=== PATIENT | male | born 1980 | race Caucasian/White ===

== ENCOUNTER → 2021-10-12 11:33 | Outpatient (BNVA) | payer MEDICARE, MEDICAID, SELFPAY | PROVIDERS: PCP Nurse Practitioner; Visit Provider Internal Medicine Gastroenterology | DX: K50.10 Crohn's disease of large intestine without complications (principal) | CPT/HCPCS: 99202 ==

== ENCOUNTER 2022-11-21 10:57 | Inpatient (IN) | payer MEDICARE, MEDICAID, SELFPAY ==
--- NOTE | 2022-11-21 | ECG_ITS ---
Test Reason : MED CLEAR Blood Pressure : / mmHG Vent. Rate : 080 BPM Atrial Rate : 080 BPM P-R Int : 154 ms QRS Dur : 084 ms QT Int : 370 ms P-R-T Axes : 078 027 054 degrees QTc Int : 426 ms Normal sinus rhythm Possible Left atrial enlargement Left ventricular hypertrophy ( Sokolow-Sauceda , Romhilt-Berg ) Abnormal ECG No previous ECGs available Referred By: Melissa Richard Electronically Signed By:PIEDAD CHUNG MD
[2022-11-21 11:03] VITALS: BP 130/88; BP 179/100; PULSE 78; PULSE 89; RESP 16; O2SAT 100; O2SAT 99; BMI 20.3
[2022-11-21 11:45] LABS: COVID-19 Test Negative (Negative); IDNOW Serial# 9DB6401D
--- NOTE | 2022-11-21 12:18 | PC.NURSE ---
Evelyn HYLTON notified regarding pt's elevated b/p. Pt denies headache, vision changes, or dizziness at this time, reports he has been out of [place] for a few weeks .
--- NOTE | 2022-11-21 12:38 | MHC.CARE ---
Pt's father (Tee ruvalcaba: [phone]) called to obtain information on pt's status. CARE Team [employer] was unable to give him any information at that time. He is requesting someone call him when pt's disposition is determined as he expressed concern over comments he made that led to his current presentation. No additional information/ details were given.
--- NOTE | 2022-11-21 12:51 | MHC.CARE ---
Pt M[place] from [place] [address] on section 12. Per EMS pt was making delusional statements at court, and telling his parents he has access to guns. Pt denying SI and HI at triage. Parents were attempting to obtain a section 35.
[2022-11-21 14:16] LABS: MANUAL DIFF FLAG NO
[2022-11-21 14:25] LABS: Basophils Percent Auto 0.4 % (0-2); Eosinophils Percent Auto 0.4 % (0-4); Hematocrit 41.5 % (42.0-52.0); Hemoglobin 13.7 g/dl (14.0-18.0); Imm Gran Abs Auto 0.01 X10*3/uL (0.00-0.03); Imm Gran Pct Auto 0.1 % (0.0-0.4); Lymphocytes Absolute Auto 1.7 X10*3/uL (1.2-4.9); Mean Corpuscular Hemoglobin 27.8 pg (27.0-33.0); Mean Corpuscular Volume 84.2 fL (80.0-98.0); Mean Platelet Volume 9.3 fL (9.4-12.4); Monocytes Absolute Auto 0.4 X10*3/uL (0.1-1.2); Monocytes Percent Auto 5.3 % (2-11); Neutrophils Absolute Auto 5.1 x10*3/uL (2.0-8.3); Neutrophils Percent Auto 70.8 % (45-73); Platelet Count 230 X10*3/uL (160-400); Red Blood Count 4.93 X10*6/uL (4.60-5.80); Red Cell Distribution Width 13.9 % (11.0-16.0); White Blood Count 7.2 X10*3/uL (4.8-10.8)
[2022-11-21 14:34] LABS: Acetaminophen LAB < 17 mcg/mL (<30); Alanine Aminotransferase 23 U/L (0-40); Albumin Level 4.4 g/dL (3.5-5.0); Alkaline Phosphatase 95 U/L (39-117); Anion Gap 12 (12-20); Aspartate Amino Transferase 19 U/L (5-37); Bilirubin Direct < 0.2 mg/dL (0.0-0.5); Bilirubin Total 0.3 mg/dL (0.0-1.0); Blood Urea Nitrogen 17 mg/dL (9-16); Calcium 9.3 mg/dL (8.4-10.2); Carbon Dioxide 32 mmol/L (22-29); Chloride 101 mmol/L (96-108); Creatinine Clr Calc Pharmacy 127.3; Estimated Glomerular Filt Rate > 60; Ethanol < 10 mg/dL; Glucose Random 103 mg/dL (60-115); Potassium 4.9 mmol/L (3.3-5.1); Salicylate < 5.0 mg/dL (15-30); Sodium 140 mmol/L (135-145); Total Protein 7.6 g/dL (6.5-8.0)
--- NOTE | 2022-11-21 15:36 | ED.PSYCH ---
HPI - Psych General Chief Complaint: Psychiatric Symptoms <WARNER Wang - Last Filed: 11/21/22 17:55> Stated Complaint: CRISIS,SEC [address] <WARNER Wang Last Filed: 11/21/22 17:55> Time Seen by Provider: 11/21/22 12:37 <WARNER Wang - Last Filed: 11/21/22 17:55> Source: patient and EMS <WARNER Wang Last Filed: 11/21/22 17:55> Mode of arrival: EMS <WARNER Wang - Last Filed: 11/21/22 17:55> History of Present Illness HPI Narrative: 41-year-old male with past medical history of substance abuse on Suboxone presenting to the ED via EMS from [facility] on a Section 12 for delusional statements, and reporting he has access to guns. Per Section 12 patient making strange statements, parents were concerned. At present patient offers no complaints, unclear why he is in the emergency department. Reports occasional cocaine, EtOH, THC use. Denies SI/HI or AH/VH at this time. Reports medication compliance <WARNER Wang - Last Filed: 11/21/22 17:55> Onset (ago): unknown <WARNER Wang Last Filed: 11/21/22 17:55> Related Data Home Medications: Home Medications Medication Instructions Recorded Confirmed atenolol 25 mg tablet 25 mg PO DAILY 10/12/21 11/21/22 omeprazole 20 mg capsule,delayed 20 mg PO DAILY 10/12/21 11/21/22 release buprenorphine 8 mg-naloxone 2 mg 2 film buccal DAILY 11/21/22 11/21/22 sublingual film (Suboxone) <WARNER Wang Last Filed: 11/21/22 17:55> Allergies/Adverse Reactions: Allergies Allergy/AdvReac Type Severity Reaction Status Date / Time No Known Allergies Allergy Verified 11/21/22 15:09 [No Known Allergies*] <WARNER Wang Last Filed: 11/21/22 17:55> Review of Systems Review of Systems: Constitutional: No Fever, No Chills, No Malaise ENT/Mouth: No Ear Pain, No Nasal Congestion, No sore throat, No Rhinorrhea, No Swallowing Difficulty Eyes: No Eye Pain, No Swelling, No Vision Changes Cardiovascular: No Chest Pain, No SOB Respiratory: No Cough, No Sputum, No Dyspnea Gastrointestinal: No Nausea, No Vomiting, No Diarrhea, No Constipation, No Abdominal pain Genitourinary: No Dysuria, No Flank Pain Musculoskeletal: No joint pain, No Myalgias, No Joint Swelling Skin: No Skin Lesions, No rash Neuro: No Weakness, No Dizziness, No Headache Psych: No Anxiety/Panic, No Depression, No SI/HI/AH/VH, No Social Issues <WARNER Wang - Last Filed: 11/21/22 17:55> Yes all other systems are reviewed and are negative <WARNER Wang - Last Filed: 11/21/22 17:55> Constitutional: Constitutional: Reports as per HPI <WARNER Wang - Last Filed: 11/21/22 17:55> PMFSH Past Medical History Attestation statement: The following information was validated with the patient. <WARNER Wang - Last Filed: 11/21/22 17:55> Surgical History: Surgical History History of esophagogastroduodenoscopy (EGD) Hx of cholecystectomy Hx of colonoscopy <WARNER Wang - Last Filed: 11/21/22 17:55> Family History Family History: Family History Father Enlarged prostate HTN (hypertension) Maternal Grandfather Diabetes Mother HTN (hypertension) <WARNER Wang - Last Filed: 11/21/22 17:55> Social History Social History: Social History Alcohol intake: unknown Use of substances other than those prescribed or required for medical reasons: Refusing to respond Advance Directives: No Advance Directives Information Provided: No <WARNER Wang Last Filed: 11/21/22 17:55> Physical Exam Vital Signs: Vital Signs: Last Vital Signs Temp 99.1 F 11/21/22 15:56 Pulse 89 11/21/22 15:56 Resp 20 11/21/22 15:56 BP 155/90 H 11/21/22 15:56 Pulse Ox 99 11/21/22 15:56 O2 Del Method 11/21/22 15:56 BMI result Body Mass Index 20.3 <WARNER Wang - Last Filed: 11/21/22 17:55> Vital Signs: Last Vital Signs Temp 99.1 F 11/21/22 15:56 Pulse 89 11/21/22 15:56 Resp 20 11/21/22 15:56 BP 155/90 H 11/21/22 15:56 Pulse Ox 99 11/21/22 15:56 O2 Del Method 11/21/22 15:56 BMI result Body Mass Index 20.3 <Perlita Roe MD - Last Filed: 11/21/22 19:48> Const: General: cooperative, healthy appearing, comfortable and no acute distress <WARNER Wang - Last Filed: 11/21/22 17:55> Orientation/consciousness: patient oriented x3 <WARNER Wang - Last Filed: 11/21/22 17:55> Limitations: no limitations <WARNER Wang - Last Filed: 11/21/22 17:55> HEENT: Head: Yes normal to inspection and Yes atraumatic <WARNER Wang - Last Filed: 11/21/22 17:55> Ears: hearing grossly normal bilaterally <WARNER Wang - Last Filed: 11/21/22 17:55> General nose exam: Normal external nose present <WARNER Wang - Last Filed: 11/21/22 17:55> Face and sinus: Yes normal facial exam <WARNER Wang - Last Filed: 11/21/22 17:55> Eyes: General: appearance normal, both eyes and all related structures <WARNER Wang - Last Filed: 11/21/22 17:55> EOM: EOMs intact bilaterally <WARNER Wang - Last Filed: 11/21/22 17:55> Neck: Neck: Yes normal visual inspection and Yes no meningeal signs <WARNER Wang - Last Filed: 11/21/22 17:55> Resp: Effort & Inspection: normal respiratory effort and no respiratory distress <WARNER Wang - Last Filed: 11/21/22 17:55> Cardio: Rate: regular rate <WARNER Wang - Last Filed: 11/21/22 17:55> Heart sounds: S1 normal heart sound present and S2 normal heart sound present <WARNER Wang - Last Filed: 11/21/22 17:55> GI: Inspection: Yes normal to inspection <WARNER Wang - Last Filed: 11/21/22 17:55> Palpation (GI): Soft to palpation, nontender, no guarding and not rigid <WARNER Wang - Last Filed: 11/21/22 17:55> Skin: Rashes: no rashes <WARNER Wang - Last Filed: 11/21/22 17:55> Wounds: no wounds <WARNER Wang - Last Filed: 11/21/22 17:55> Neuro: General: patient oriented x3, tone normal and no meningeal signs <WARNER Wang - Last Filed: 11/21/22 17:55> Gait exam (Neuro): Normal gait present <WARNER Wang - Last Filed: 11/21/22 17:55> Extrem: General: Yes normal to inspection <WARNER Wang - Last Filed: 11/21/22 17:55> Psych: Appearance: grossly normal <WARNER Wang - Last Filed: 11/21/22 17:55> Affect: normal affect <WARNER Wang - Last Filed: 11/21/22 17:55> Thought process: Normal thought process present <WARNER Wang - Last Filed: 11/21/22 17:55> Thought content: suicidality, no homicidality and No Depressive thoughts present <WARNER Wang - Last Filed: 11/21/22 17:55> Course Course Course Narrative: -labs unremarkable -COVID-19 negative -tox screen positive for cocaine and THC. Patient is medically cleared for CARE team evaluation -1800--ED care transferred to [facility] pending CARE eval <WARNER Wang - Last Filed: 11/21/22 17:55> Medical Decision Making Medical Decision Making MDM Narrative: 41-year-old male with past medical history of substance abuse on Suboxone presenting to the ED via EMS from [facility] on a Section 12 for delusional statements, and reporting he has access to guns. On exam hypertensive, NAD, nontoxic appearing, denies SI/HI or auditory/visual hallucinations. Concern for metabolic abnormalities vs substance abuse Plan: Labs, drug screen, CARE team consult Please refer to course for remaining clinical decision making, interpretation of labs/imaging results, and discussions with consultants and/or family members. <WARNER Wang - Last Filed: 11/21/22 17:55> 41-year-old male with past medical history of substance abuse on Suboxone presenting to the ED via EMS from [facility] on a Section 12 for delusional statements, and reporting he has access to guns. On exam hypertensive, NAD, nontoxic appearing, denies SI/HI or auditory/visual hallucinations. Concern for metabolic abnormalities vs substance abuse Plan: Labs, drug screen, CARE team consult Please refer to course for remaining clinical decision making, interpretation of labs/imaging results, and discussions with consultants and/or family members. - 19:47: patient was evaluated by the care team. Patient's parents are very concerned about the patient. Patient known to light during assessments, knows what to answer to be able to go home. However, over the last 3 weeks, patient has been significantly decompensated. Care team recommends that the patient gets inpatient treatment. Patient is on a Section 12. <Perlita Roe MD - Last Filed: 11/21/22 19:48> Differential Diagnosis Differential Diagnoses: The differential diagnosis associated with the presentation includes <WARNER Wang - Last Filed: 11/21/22 17:55> as above <WARNER Wang - Last Filed: 11/21/22 17:55> Consult Healthcare Provider Management of the patient was discussed with: Behavioral Health Provider <WARNER Wang - Last Filed: 11/21/22 17:55> Lab Data [facility] Lab Attestation statement: I reviewed the patient's lab results. <WARNER Wang - Last Filed: 11/21/22 17:55> Result Diagrams: 11/21/22 14:11 03/02/23 14:11 <WARNER Wang - Last Filed: 11/21/22 17:55> Labs: Lab Results 11/21/22 11/21/22 11/21/22 Range/Units 11:18 14:11 14:11 WBC 7.2 (4.8-10.8) X10*3/uL RBC 4.93 (4.60-5.80) X10*6/uL Hgb 13.7 L (14.0-18.0) g/dl Hct 41.5 L (42.0-52.0) % MCV 84.2 (80.0-98.0) fL MCH 27.8 (27.0-33.0) pg MCHC 33.0 (31.0-36.0) g/dl RDW 13.9 (11.0-16.0) % Plt Count 230 (160-400) X10*3/uL MPV 9.3 L (9.4-12.4) fL Immature Gran % (Auto) 0.1 (0.0-0.4) % Neut % (Auto) 70.8 (45-73) % Lymph % (Auto) 23.0 (20-40) % Dougherty % (Auto) 5.3 (2-11) % Eos % (Auto) 0.4 (0-4) % Baso % (Auto) 0.4 (0-2) % Lymph # (Auto) 1.7 (1.2-4.9) X10*3/uL Dougherty # (Auto) 0.4 (0.1-1.2) X10*3/uL Eos # (Auto) 0.0 (0.0-0.4) X10*3/uL Baso # (Auto) 0.0 (0.0-0.2) X10*3/uL Abs Immat Gran (auto) 0.01 (0.00-0.03) X10*3/uL Absolute Neuts (auto) 5.1 (2.0-8.3) x10*3/uL Absolute Nucleated RBC 0.000 (0.0-0.012) X10*3/uL Nucleated RBC % (auto) 0.0 (0.0-0.2) /100WBC Sodium 140 (135-145) mmol/L Potassium 4.9 (3.3-5.1) mmol/L Chloride 101 (96-108) mmol/L Carbon Dioxide 32 H (22-29) mmol/L Anion Gap 12 (12-20) BUN 17 H (9-16) mg/dL Creatinine 0.72 (0.5-1.4) mg/dL Estim Creat Clear Calc 127.3 Estimated GFR > 60 Random Glucose 103 (60-115) mg/dL Calcium 9.3 (8.4-10.2) mg/dL Total Bilirubin 0.3 (0.0-1.0) mg/dL Direct Bilirubin < 0.2 (0.0-0.5) mg/dL AST 19 (5-37) U/L ALT 23 (0-40) U/L Alkaline Phosphatase 95 (39-117) U/L Total Protein 7.6 (6.5-8.0) g/dL Albumin 4.4 (3.5-5.0) g/dL Urine Color Urine Appearance Urine pH (5.0-9.0) Ur Specific Brinson (1.005-1.025) Urine Protein (Neg-Trace) mg/dL Urine Glucose (UA) (Negative) mg/dL Urine Ketones (Negative) mg/dL Urine Blood (Negative) Urine Nitrite (Negative) Ur Leukocyte Esterase (Negative) Salicylates < 5.0 L (15-30) mg/dL Urine Opiates Screen (Not Detect) Urine Fentanyl Screen (Not Detect) Acetaminophen < 17 (<30) mcg/mL Ur Barbiturates Screen (Not Detect) Ur Phencyclidine Scrn (Not Detect) Ur Amphetamines Screen (Not Detect) U Benzodiazepines Scrn (Not Detect) Urine Cocaine Screen (Not Detect) U Marijuana (THC) Screen (Not Detect) Ethyl Alcohol < 10 mg/dL COVID-19 (JOAN) Negative (Negative) COVID-19 Clin Com See Note 11/21/22 11/21/22 Range/Units 16:14 16:14 WBC (4.8-10.8) X10*3/uL RBC (4.60-5.80) X10*6/uL Hgb (14.0-18.0) g/dl Hct (42.0-52.0) % MCV (80.0-98.0) fL MCH (27.0-33.0) pg MCHC (31.0-36.0) g/dl RDW (11.0-16.0) % Plt Count (160-400) X10*3/uL MPV (9.4-12.4) fL Immature Gran % (Auto) (0.0-0.4) % Neut % (Auto) (45-73) % Lymph % (Auto) (20-40) % Dougherty % (Auto) (2-11) % Eos % (Auto) (0-4) % Baso % (Auto) (0-2) % Lymph # (Auto) (1.2-4.9) X10*3/uL Dougherty # (Auto) (0.1-1.2) X10*3/uL Eos # (Auto) (0.0-0.4) X10*3/uL Baso # (Auto) (0.0-0.2) X10*3/uL Abs Immat Gran (auto) (0.00-0.03) X10*3/uL Absolute Neuts (auto) (2.0-8.3) x10*3/uL Absolute Nucleated RBC (0.0-0.012) X10*3/uL Nucleated RBC % (auto) (0.0-0.2) /100WBC Sodium (135-145) mmol/L Potassium (3.3-5.1) mmol/L Chloride (96-108) mmol/L Carbon Dioxide (22-29) mmol/L Anion Gap (12-20) BUN (9-16) mg/dL Creatinine (0.5-1.4) mg/dL Estim Creat Clear Calc Estimated GFR Random Glucose (60-115) mg/dL Calcium (8.4-10.2) mg/dL Total Bilirubin (0.0-1.0) mg/dL Direct Bilirubin (0.0-0.5) mg/dL AST (5-37) U/L ALT (0-40) U/L Alkaline Phosphatase (39-117) U/L Total Protein (6.5-8.0) g/dL Albumin (3.5-5.0) g/dL Urine Color Yellow Urine Appearance Cloudy Urine pH >= 9.0 (5.0-9.0) Ur Specific Brinson 1.020 (1.005-1.025) Urine Protein Trace (Neg-Trace) mg/dL Urine Glucose (UA) Negative (Negative) mg/dL Urine Ketones Negative (Negative) mg/dL Urine Blood Negative (Negative) Urine Nitrite Negative (Negative) Ur Leukocyte Esterase Negative (Negative) Salicylates (15-30) mg/dL Urine Opiates Screen Not Detected (Not Detect) Urine Fentanyl Screen Not Detected (Not Detect) Acetaminophen (<30) mcg/mL Ur Barbiturates Screen Not Detected (Not Detect) Ur Phencyclidine Scrn Not Detected (Not Detect) Ur Amphetamines Screen Not Detected (Not Detect) U Benzodiazepines Scrn Not Detected (Not Detect) Urine Cocaine Screen POSITIVE H (Not Detect) U Marijuana (THC) Screen POSITIVE H (Not Detect) Ethyl Alcohol mg/dL COVID-19 (JOAN) (Negative) COVID-19 Clin Com <WARNER Wang - Last Filed: 11/21/22 17:55> Lab Results 11/21/22 11/21/22 11/21/22 Range/Units 11:18 14:11 14:11 WBC 7.2 (4.8-10.8) X10*3/uL RBC 4.93 (4.60-5.80) X10*6/uL Hgb 13.7 L (14.0-18.0) g/dl Hct 41.5 L (42.0-52.0) % MCV 84.2 (80.0-98.0) fL MCH 27.8 (27.0-33.0) pg MCHC 33.0 (31.0-36.0) g/dl RDW 13.9 (11.0-16.0) % Plt Count 230 (160-400) X10*3/uL MPV 9.3 L (9.4-12.4) fL Immature Gran % (Auto) 0.1 (0.0-0.4) % Neut % (Auto) 70.8 (45-73) % Lymph % (Auto) 23.0 (20-40) % Dougherty % (Auto) 5.3 (2-11) % Eos % (Auto) 0.4 (0-4) % Baso % (Auto) 0.4 (0-2) % Lymph # (Auto) 1.7 (1.2-4.9) X10*3/uL Dougherty # (Auto) 0.4 (0.1-1.2) X10*3/uL Eos # (Auto) 0.0 (0.0-0.4) X10*3/uL Baso # (Auto) 0.0 (0.0-0.2) X10*3/uL Abs Immat Gran (auto) 0.01 (0.00-0.03) X10*3/uL Absolute Neuts (auto) 5.1 (2.0-8.3) x10*3/uL Absolute Nucleated RBC 0.000 (0.0-0.012) X10*3/uL Nucleated RBC % (auto) 0.0 (0.0-0.2) /100WBC Sodium 140 (135-145) mmol/L Potassium 4.9 (3.3-5.1) mmol/L Chloride 101 (96-108) mmol/L Carbon Dioxide 32 H (22-29) mmol/L Anion Gap 12 (12-20) BUN 17 H (9-16) mg/dL Creatinine 0.72 (0.5-1.4) mg/dL Estim Creat Clear Calc 127.3 Estimated GFR > 60 Random Glucose 103 (60-115) mg/dL Calcium 9.3 (8.4-10.2) mg/dL Total Bilirubin 0.3 (0.0-1.0) mg/dL Direct Bilirubin < 0.2 (0.0-0.5) mg/dL AST 19 (5-37) U/L ALT 23 (0-40) U/L Alkaline Phosphatase 95 (39-117) U/L Total Protein 7.6 (6.5-8.0) g/dL Albumin 4.4 (3.5-5.0) g/dL Urine Color Urine Appearance Urine pH (5.0-9.0) Ur Specific Brinson (1.005-1.025) Urine Protein (Neg-Trace) mg/dL Urine Glucose (UA) (Negative) mg/dL Urine Ketones (Negative) mg/dL Urine Blood (Negative) Urine Nitrite (Negative) Ur Leukocyte Esterase (Negative) Salicylates < 5.0 L (15-30) mg/dL Urine Opiates Screen (Not Detect) Urine Fentanyl Screen (Not Detect) Acetaminophen < 17 (<30) mcg/mL Ur Barbiturates Screen (Not Detect) Ur Phencyclidine Scrn (Not Detect) Ur Amphetamines Screen (Not Detect) U Benzodiazepines Scrn (Not Detect) Urine Cocaine Screen (Not Detect) U Marijuana (THC) Screen (Not Detect) Ethyl Alcohol < 10 mg/dL COVID-19 (JOAN) Negative (Negative) COVID-19 Clin Com See Note 11/21/22 11/21/22 Range/Units 16:14 16:14 WBC (4.8-10.8) X10*3/uL RBC (4.60-5.80) X10*6/uL Hgb (14.0-18.0) g/dl Hct (42.0-52.0) % MCV (80.0-98.0) fL MCH (27.0-33.0) pg MCHC (31.0-36.0) g/dl RDW (11.0-16.0) % Plt Count (160-400) X10*3/uL MPV (9.4-12.4) fL Immature Gran % (Auto) (0.0-0.4) % Neut % (Auto) (45-73) % Lymph % (Auto) (20-40) % Dougherty % (Auto) (2-11) % Eos % (Auto) (0-4) % Baso % (Auto) (0-2) % Lymph # (Auto) (1.2-4.9) X10*3/uL Dougherty # (Auto) (0.1-1.2) X10*3/uL Eos # (Auto) (0.0-0.4) X10*3/uL Baso # (Auto) (0.0-0.2) X10*3/uL Abs Immat Gran (auto) (0.00-0.03) X10*3/uL Absolute Neuts (auto) (2.0-8.3) x10*3/uL Absolute Nucleated RBC (0.0-0.012) X10*3/uL Nucleated RBC % (auto) (0.0-0.2) /100WBC Sodium (135-145) mmol/L Potassium (3.3-5.1) mmol/L Chloride (96-108) mmol/L Carbon Dioxide (22-29) mmol/L Anion Gap (12-20) BUN (9-16) mg/dL Creatinine (0.5-1.4) mg/dL Estim Creat Clear Calc Estimated GFR Random Glucose (60-115) mg/dL Calcium (8.4-10.2) mg/dL Total Bilirubin (0.0-1.0) mg/dL Direct Bilirubin (0.0-0.5) mg/dL AST (5-37) U/L ALT (0-40) U/L Alkaline Phosphatase (39-117) U/L Total Protein (6.5-8.0) g/dL Albumin (3.5-5.0) g/dL Urine Color Yellow Urine Appearance Cloudy Urine pH >= 9.0 (5.0-9.0) Ur Specific Brinson 1.020 (1.005-1.025) Urine Protein Trace (Neg-Trace) mg/dL Urine Glucose (UA) Negative (Negative) mg/dL Urine Ketones Negative (Negative) mg/dL Urine Blood Negative (Negative) Urine Nitrite Negative (Negative) Ur Leukocyte Esterase Negative (Negative) Salicylates (15-30) mg/dL Urine Opiates Screen Not Detected (Not Detect) Urine Fentanyl Screen Not Detected (Not Detect) Acetaminophen (<30) mcg/mL Ur Barbiturates Screen Not Detected (Not Detect) Ur Phencyclidine Scrn Not Detected (Not Detect) Ur Amphetamines Screen Not Detected (Not Detect) U Benzodiazepines Scrn Not Detected (Not Detect) Urine Cocaine Screen POSITIVE H (Not Detect) U Marijuana (THC) Screen POSITIVE H (Not Detect) Ethyl Alcohol mg/dL COVID-19 (JOAN) (Negative) COVID-19 Clin Com <Perlita Roe MD - Last Filed: 11/21/22 19:48> Radiology Impression Discussion of test interpretation with radiology: I have reviewed the radiologist's reading. <WARNER Wang - Last Filed: 11/21/22 17:55> External Record Review External record reviewed: Outpatient record and Prior outpatient labs <WARNER Wang - Last Filed: 11/21/22 17:55> Discharge Plan Discharge Clinical Impression: Delusional disorder, Substance abuse <WARNER Wang - Last Filed: 11/21/22 17:55> Patient Disposition: Still a Patient <WARNER Wang - Last Filed: 11/21/22 17:55> Prescriptions: No Action buprenorphine-naloxone [Suboxone] 8-2 mg Film 2 film BUCCAL DAILY Rx Instructions: place 1 film on inside of (each) cheek atenolol 25 mg tablet 25 mg PO DAILY omeprazole 20 mg capsule,delayed release(DR/EC) 20 mg PO DAILY <WARNER Wang - Last Filed: 11/21/22 17:55> Interventions: [place]-Suicide Risk Severity Scale Last Done: 11/21/22 15:15 <WARNER Wang - Last Filed: 11/21/22 17:55>
[2022-11-21 15:56] VITALS: BP 155/90; PULSE 89; RESP 20; TEMP 37.3; O2SAT 99
--- NOTE | 2022-11-21 16:20 | PC.NURSE ---
pt requesting to leave, this RN educated pt regarding his Section 12 and that he has no been seen by the Care Team yet. pt states that he did nothing wrong and there is no reason for him to be here . This RN explained to pt that once seen by care team there will be a better idea of the plan of care. Pt agreeable at this time, requesting to use phone to call neighbor to feed dog
[2022-11-21 16:29] LABS: Appearance Urine Cloudy; Color Urine Yellow; Glucose Urine UA Negative (Negative); Leukocyte Esterase Urine Negative (Negative); Nitrite Urine Negative (Negative); PH >= 9.0 (5.0-9.0); Urine Blood Negative (Negative); Urine Ketones Negative (Negative); Urine Protein Trace mg/dL (Neg-Trace)
[2022-11-21 16:33] LABS: Amphetamine Screen Urine Not Detected (Not Detect); Barbiturates, Urine Not Detected (Not Detect); Benzodiazepines Screen Urine Not Detected (Not Detect); Cannabinoid Screen Urine POSITIVE (Not Detect); Cocaine Screen Urine POSITIVE (Not Detect); Fentanyl, urine Not Detected (Not Detect); Opiate Screen Urine Not Detected (Not Detect); Phencyclidine Screen Urine Not Detected (Not Detect)
--- NOTE | 2022-11-21 16:38 | PC.NURSE ---
Pt occasionally wandering around pod, requesting to leave, pt reminded of plan to talk to care team. Pt urine resulted, now awaiting care team eval
--- NOTE | 2022-11-21 18:20 | PC.NURSE ---
Care team evaluated pt, now sleeping, respirations even and unlabored, no apparent distress
--- NOTE | 2022-11-21 21:07 | MHC.CARE ---
Pt's strawhat inspector and packer is Tammy Carvajal [phone]
--- NOTE | 2022-11-22 01:58 | PC.ADMIT ---
PT is a 41 year old grenadian speaking male that arrived on this unit at 23:13 from the [facility] and was placed on 15 minute safety checks. Legal Status: Section 12B. PT arrived to [facility] via ambulance on a section 12 from the courthouse in [place] after engaging in bizarre behavior and making delusional statements to his father and assistant prosecuting attorney. [place] [facility] for a section 35 hearing related to his substance use disorder. According to collateral pt has delusional beliefs that people are living in the trees outside of his house, and under his front lawn and are getting in his house through the drains. PT stated to his environmental research scientist that he does have access to firearms but this is unconfirmed. Chronic medical hx includes Crohn's disease and substance use disorder. COVID neg, UTOX positive for cocaine and THC. PT arrived on unit late, did not wish to participate in admission process, denies SI/HI, AH/VH, and went right to bed. Treatment plan completed. Legals and safety tool to be completed when patient awakens.
[2022-11-22 06:00] VITALS: BP 147/94; PULSE 72; RESP 14; TEMP 36.6; O2SAT 96
[2022-11-22] MEDS: Buprenorphine/Naloxone 8/2 mg FILM 2 FILM BUCCAL (08:06)
[2022-11-22] MEDS: Omeprazole 20 MG CAPSULE.DR PO (08:06)
[2022-11-22] MEDS: atenoloL 25 MG TABLET PO (08:06)
[2022-11-22] MEDS: Acetaminophen 325 MG TABLET 650 MG PO ×2 (08:43→16:09)
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
[2022-11-22 18:00] VITALS: BP 128/78; PULSE 68; RESP 16; TEMP 36.6; O2SAT 97
[2022-11-22] MEDS: risperiDONE 1 MG TABLET PO (19:07)
[2022-11-23 08:46] VITALS: BP 149/98; PULSE 97; RESP 16; TEMP 36.7; O2SAT 96
[2022-11-23] MEDS: Buprenorphine/Naloxone 8/2 mg FILM 2 FILM BUCCAL (08:46)
[2022-11-23] MEDS: Omeprazole 20 MG CAPSULE.DR PO (08:50)
--- NOTE | 2022-11-23 09:47 | HO.PSYCHPN ---
Subjective Subjective Date of Service: 11/23/22 Reason For Visit: psychosis Subjective Notes: Section 12B Healthcare Proxy: No Guardianship: No Medical Problems Affecting Mental Status: Yes (weight loss? 40 lb , ) Interim History: Pt reports vague story- how he is here due to family's concerns which brought him to court, lost alot of weight, on suboxone tablets no films- doesn't really know what to make of it - tells me he has a pill in his belongings he could take ( nursing reports pills were found and given to hospital pharmacy when he was checked in) Says he is not crazy that he is a nice fernanda - reminded him mental illness doesn't mean not nice fernanda- There does seem to be some underlying vague/circumstantial thinking but very unclear and can't tell if he is guarded or disorganized in his thought process. Medication Compliance: Yes Side effects from medications: No Attending Groups: Intermittent Review of Systems Acute medical concerns: Yes ? the weight loss Medical Review of Systems: unchanged Mental Status Exam Mental Status Exam Narrative: thin appearing Patient Appearance: Appropriate Patient Orientation: Person, Place, Time and Situation Level of Consciousness: Awake and Appropriate Patient Behavior: Appropriate Mood Description: Calm Affect Description: Blunted Patient Cognition Impaired: No Ability to Follow Directions: Fair Speech Pattern: Clear Hallucinations: None Thought Process: Intact Thought Content: positive for Evasive Depressive Symptoms: Significant Weight Loss Judgement: Poor Diagnostics Vital Signs (24Hr): Vital Signs - 24 hr 11/22/22 18:00 11/23/22 08:46 Temperature 97.8 F 98.0 F Pulse Rate 68 97 Respiratory Rate 16 16 Blood Pressure 128/78 149/98 H Pulse Oximetry 97 96 Oxygen Delivery Method Room Air Room Air BMI result Body Mass Index 20.3 Labs 11/21/22 14:11 11/21/22 14:11 Labs: Laboratory Results - last 48 hr 11/21/22 11/21/22 11/21/22 11:18 14:11 14:11 WBC 7.2 RBC 4.93 Hgb 13.7 L Hct 41.5 L MCV 84.2 MCH 27.8 MCHC 33.0 RDW 13.9 Plt Count 230 MPV 9.3 L Immature Gran % (Auto) 0.1 Neut % (Auto) 70.8 Lymph % (Auto) 23.0 [place] % (Auto) 5.3 Eos % (Auto) 0.4 Baso % (Auto) 0.4 Lymph # (Auto) 1.7 [place] # (Auto) 0.4 Eos # (Auto) 0.0 Baso # (Auto) 0.0 Abs Immat Gran (auto) 0.01 Absolute Neuts (auto) 5.1 Absolute Nucleated RBC 0.000 Nucleated RBC % (auto) 0.0 Sodium 140 Potassium 4.9 Chloride 101 Carbon Dioxide 32 H Anion Gap 12 BUN 17 H Creatinine 0.72 Estim Creat Clear Calc 127.3 Estimated GFR > 60 Random Glucose 103 Calcium 9.3 Total Bilirubin 0.3 Direct Bilirubin < 0.2 AST 19 ALT 23 Alkaline Phosphatase 95 Total Protein 7.6 Albumin 4.4 Urine Color Urine Appearance Urine pH Ur Specific [place] Urine Protein Urine Glucose (UA) Urine Ketones Urine Blood Urine Nitrite Ur Leukocyte Esterase Salicylates < 5.0 L Urine Opiates Screen Urine Fentanyl Screen Acetaminophen < 17 Ur Barbiturates Screen Ur Phencyclidine Scrn Ur Amphetamines Screen U Benzodiazepines Scrn Urine Cocaine Screen U Marijuana (THC) Screen Ethyl Alcohol < 10 COVID-19 (JOAN) Negative COVID-19 Clin Com See Note 11/21/22 11/21/22 16:14 16:14 WBC RBC Hgb Hct MCV MCH MCHC RDW Plt Count MPV Immature Gran % (Auto) Neut % (Auto) Lymph % (Auto) [place] % (Auto) Eos % (Auto) Baso % (Auto) Lymph # (Auto) [place] # (Auto) Eos # (Auto) Baso # (Auto) Abs Immat Gran (auto) Absolute Neuts (auto) Absolute Nucleated RBC Nucleated RBC % (auto) Sodium Potassium Chloride Carbon Dioxide Anion Gap BUN Creatinine Estim Creat Clear Calc Estimated GFR Random Glucose Calcium Total Bilirubin Direct Bilirubin AST ALT Alkaline Phosphatase Total Protein Albumin Urine Color Yellow Urine Appearance Cloudy Urine pH >= 9.0 Ur Specific [place] 1.020 Urine Protein Trace Urine Glucose (UA) Negative Urine Ketones Negative Urine Blood Negative Urine Nitrite Negative Ur Leukocyte Esterase Negative Salicylates Urine Opiates Screen Not Detected Urine Fentanyl Screen Not Detected Acetaminophen Ur Barbiturates Screen Not Detected Ur Phencyclidine Scrn Not Detected Ur Amphetamines Screen Not Detected U Benzodiazepines Scrn Not Detected Urine Cocaine Screen POSITIVE H U Marijuana (THC) Screen POSITIVE H Ethyl Alcohol COVID-19 (JOAN) COVID-19 Clin Com Medications Medications Current Medications Acetaminophen (Acetaminophen 325 Mg Tablet) 650 mg PO Q6H PRN PRN Reason: Headache/Pain Mild Scale (1-3) Last Admin: 11/22/22 16:09 Dose: 650 mg Al Hydroxide/Mg Hydroxide (Magnesium Hydrox/Alum Hydrox 30 Ml Oral.Susp) 30 ml PO Q6H PRN PRN Reason: Heartburn/Nausea Atenolol (Atenolol 25 Mg Tablet) 25 mg PO DAILY [facility]; Protocol Last Admin: 11/23/22 08:52 Dose: Not Given Buprenorphine/Naloxone (Buprenorphine/Naloxone 8/2 Mg Film) 2 film BUCCAL DAILY [facility] Last Admin: 11/23/22 08:46 Dose: 2 film Hydroxyzine HCl (Hydroxyzine Hcl 25 Mg Tablet) 25 mg PO Q6H PRN PRN Reason: Anxiety Magnesium Hydroxide (Milk Of Magnesia 30 Ml Oral.Susp) 30 ml PO DAILY PRN PRN Reason: Constipation Nicotine Polacrilex (Nicotine Polacrilex 2 Mg Gum) 4 mg BUCCAL Q2H PRN PRN Reason: Nicotine Cravings Omeprazole (Omeprazole 20 Mg Capsule.Dr) 20 mg PO DAILY [facility] Last Admin: 11/23/22 08:50 Dose: 20 mg Risperidone (Risperidone 1 Mg Tablet) 1 mg PO BID [facility] Last Admin: 11/23/22 08:52 Dose: Not Given Risperidone (Risperidone 1 Mg Tablet) 1 mg PO BID PRN PRN Reason: psychosis, agitation Trazodone HCl (Trazodone Hcl 50 Mg Tablet) 50 mg PO BEDTIME MRX1 PRN PRN Reason: Insomnia Allergies Allergies Allergy/AdvReac Type Severity Reaction Status Date / Time No Known Allergies Allergy Verified 11/21/22 15:09 [No Known Allergies*] Assessment & Plan Assessment & Plan (1) Delusional disorder: Status: Acute Code(s): F22 - Delusional disorders Assessment and Plan: ? can't pin point (2) Substance abuse: Status: Acute Code(s): F19.10 - Other psychoactive substance abuse, uncomplicated Assessment and Plan: on suboxone at [facility] he says (3) Substance-induced psychotic disorder: Status: Acute Code(s): F19.959 - Other psychoactive substance use, unspecified with psychoactive substance-induced psychotic disorder, unspecified Assessment and Plan: will need further collateral info about family's concern Plan 41 yo male with sx of possible substance induced psychosis. Sent from the court where family was seeking a Section 35. Currently on Suboxone with [facility]. Section 12B. Plan: Collateral contacts Continue diagnostics Risperdal 1 mg bid and 1 mg bid prn psychotic agitation. Monitor ongoing mental status and symptoms. Patient educated on: medical condition Informed Consent: further education needed Reason for contiued inpatient stay Substantial Risk for: med/psych decompensation Time Spent With Patient Time: Total time managing care of this patient today ____ minutes.
[2022-11-24] MEDS: hydrOXYzine HCL 25 MG TABLET PO (05:25)
[2022-11-24] MEDS: Omeprazole 20 MG CAPSULE.DR PO (08:54)
[2022-11-24 08:59] VITALS: BP 134/87; PULSE 82; RESP 16; TEMP 37.2; O2SAT 97
--- NOTE | 2022-11-24 10:11 | HO.PSYCHPN ---
Subjective Subjective Date of Service: 11/24/22 Reason For Visit: psychosis Subjective Notes: Section 12B Healthcare Proxy: No Guardianship: No Medical Problems Affecting Mental Status: No Interim History: Pt uncooperative with interview today , believes he is leaving tomorrow reports having no psychiatric problem only opiate dependence he is stable on subutex- which is only med he will take- Says he was sent here for rest Medication Compliance: No Side effects from medications: No Attending Groups: Intermittent Review of Systems Acute medical concerns: No Medical Review of Systems: unchanged Mental Status Exam Mental Status Exam Patient Appearance: Fatigued and Unkempt Patient Orientation: Person, Place, Time and Situation Level of Consciousness: Drowsy Patient Behavior: Resistive to Care and Avoidant Mood Description: Withdrawn Affect Description: Blunted Ability to Follow Directions: Fair Speech Pattern: Clear Hallucinations: None Thought Process: Intact Thought Content: positive for [place] Depressive Symptoms: Significant Weight Loss Judgement: Fair Diagnostics Vital Signs (24Hr): Vital Signs - 24 hr 11/24/22 08:59 Temperature 98.9 F Pulse Rate 82 Respiratory Rate 16 Blood Pressure 134/87 Pulse Oximetry 97 Oxygen Delivery Method Room Air BMI result Body Mass Index 20.3 Labs 11/21/22 14:11 11/21/22 14:11 Medications Medications Current Medications Acetaminophen (Acetaminophen 325 Mg Tablet) 650 mg PO Q6H PRN PRN Reason: Headache/Pain Mild Scale (1-3) Last Admin: 11/22/22 16:09 Dose: 650 mg Al Hydroxide/Mg Hydroxide (Magnesium Hydrox/Alum Hydrox 30 Ml Oral.Susp) 30 ml PO Q6H PRN PRN Reason: Heartburn/Nausea Atenolol (Atenolol 25 Mg Tablet) 25 mg PO DAILY [facility]; Protocol Last Admin: 11/24/22 08:58 Dose: Not Given Buprenorphine/Naloxone (Buprenorphine/Naloxone 8/2 Mg Film) 2 film BUCCAL DAILY [facility] Last Admin: 11/24/22 08:58 Dose: Not Given Hydroxyzine HCl (Hydroxyzine Hcl 25 Mg Tablet) 25 mg PO Q6H PRN PRN Reason: Anxiety Last Admin: 11/24/22 05:25 Dose: 25 mg Magnesium Hydroxide (Milk Of Magnesia 30 Ml Oral.Susp) 30 ml PO DAILY PRN PRN Reason: Constipation Nicotine Polacrilex (Nicotine Polacrilex 2 Mg Gum) 4 mg BUCCAL Q2H PRN PRN Reason: Nicotine Cravings Omeprazole (Omeprazole 20 Mg Capsule.Dr) 20 mg PO DAILY [facility] Last Admin: 11/24/22 08:54 Dose: 20 mg Risperidone (Risperidone 1 Mg Tablet) 1 mg PO BID [facility] Last Admin: 11/24/22 08:58 Dose: Not Given Risperidone (Risperidone 1 Mg Tablet) 1 mg PO BID PRN PRN Reason: psychosis, agitation Trazodone HCl (Trazodone Hcl 50 Mg Tablet) 50 mg PO BEDTIME MRX1 PRN PRN Reason: Insomnia Allergies Allergies Allergy/AdvReac Type Severity Reaction Status Date / Time No Known Allergies Allergy Verified 11/21/22 15:09 [No Known Allergies*] Assessment & Plan Assessment & Plan (1) Delusional disorder: Status: Acute Code(s): F22 - Delusional disorders Assessment and Plan: ? can't pin point any o odd affect, here against his will (2) Substance abuse: Status: Acute Code(s): F19.10 - Other psychoactive substance abuse, uncomplicated Assessment and Plan: on suboxone at [facility] he says 11/24/22 refusing sub films wants pills had consult with addiction medicine who gave him subutex (3) Substance-induced psychotic disorder: Status: Acute Code(s): F19.959 - Other psychoactive substance use, unspecified with psychoactive substance-induced psychotic disorder, unspecified Assessment and Plan: will need further collateral info about family's concern Plan 41 yo male with sx of possible substance induced psychosis. Sent from the court where family was seeking a Section 35. Currently on Suboxone with [facility] [employer]. Section 12B. Plan: Collateral contacts Continue diagnostics Risperdal 1 mg bid and 1 mg bid prn psychotic agitation. Monitor ongoing mental status and symptoms. Patient educated on: substance abuse Informed Consent: further education needed Reason for contiued inpatient stay Substantial Risk for: rapid decompensation Time Spent With Patient Time: Total time managing care of this patient today ____ minutes.
[2022-11-24] MEDS: Acetaminophen 325 MG TABLET 650 MG PO (13:49)
--- NOTE | 2022-11-24 15:20 | PM.EVENT ---
Event Note Date of Service: 11/24/22 Event Note: Addiction consult [facility] placed as patient reportedly refusing SL films and requesting tab formulation. Chart reviewed, discussed with hazardous material technician Shakir reviewed, last fill 10/2022 and prior fills for buprenorphine tablet. Plan: Films discontinued, tablets ordered Time Spent With Patient Time: Total time managing care of this patient today ____ minutes.
[2022-11-24 18:00] VITALS: BP 130/86; PULSE 86; RESP 14; TEMP 36.9
[2022-11-24] MEDS: Buprenorphine HCL 8 MG TAB.SUBL SUBLINGUAL ×2 (21:17→21:57)
--- NOTE | 2022-11-24 22:03 | PC.NURSE ---
Received TO from Kiersten Spence NP for second dose of Buprenorphine 8mg to make a total evening dose of 16mg. She will re-evaluate orders in the morning.
[2022-11-25 06:00] VITALS: BP 167/93; PULSE 84; RESP 14; TEMP 36.6; O2SAT 100
[2022-11-25] MEDS: Buprenorphine HCL 8 MG TAB.SUBL SUBLINGUAL ×2 (08:21→12:47)
[2022-11-25] MEDS: Acetaminophen 325 MG TABLET 650 MG PO ×2 (11:25→19:13)
--- NOTE | 2022-11-25 17:18 | HO.PSYCHPN ---
Subjective Subjective Date of Service: 11/25/22 Reason For Visit: psychosis Subjective Notes: Section 12B Healthcare Proxy: No Guardianship: No Medical Problems Affecting Mental Status: No Interim History: Refusing all psychiatric medications. Today, reviewed with pt precipitants to admission and reports from family, court regarding his delusional content and reports. Expressed surprise at all except the issue with the drain, stating there is a patch of lawn in the front of the home that is decayed and he thought it might have something to do with drainage systems. Denies all precipitating allegations for admission at this time. Asked pt if he was given medicine or took a recreational drug that may have caused these sx. He denies this. Per team, parents are in process of asking court to consider Section 35. Medication Compliance: No Side effects from medications: No Attending Groups: Intermittent Review of Systems Acute medical concerns: No Medical Review of Systems: unchanged Mental Status Exam Mental Status Exam Patient Appearance: Appropriate Patient Orientation: Person, Place, Time and Situation Level of Consciousness: Alert Patient Behavior: Appropriate, Talkative, Cooperative and Good Eye Contact Mood Description: Calm and Constricted Affect Description: Calm and Constricted Patient Cognition Impaired: No Ability to Follow Directions: Good Speech Pattern: Clear, Appropriate and Spontaneous Speech Memory Description: Intact and Episodic Impaired Hallucinations: None Delusions: Not Present Thought Process: Intact Thought Content: positive for Intact Depressive Symptoms: Thoughts of /Suicide (denies) Judgement: Good Diagnostics Vital Signs (24Hr): Vital Signs - 24 hr 11/24/22 18:00 11/25/22 06:00 Temperature 98.4 F 97.8 F Pulse Rate 86 84 Respiratory Rate 14 14 Blood Pressure 130/86 167/93 H Pulse Oximetry 100 Oxygen Delivery Method Room Air BMI result Body Mass Index 20.3 Labs 11/21/22 14:11 11/21/22 14:11 Medications Medications Current Medications Acetaminophen (Acetaminophen 325 Mg Tablet) 650 mg PO Q6H PRN PRN Reason: Headache/Pain Mild Scale (1-3) Last Admin: 11/25/22 11:25 Dose: 650 mg Al Hydroxide/Mg Hydroxide (Magnesium Hydrox/Alum Hydrox 30 Ml Oral.Susp) 30 ml PO Q6H PRN PRN Reason: Heartburn/Nausea Atenolol (Atenolol 25 Mg Tablet) 25 mg PO DAILY [facility]; Protocol Last Admin: 11/25/22 08:21 Dose: Not Given Buprenorphine HCl (Buprenorphine Hcl 8 Mg Tab.Subl) 16 mg SUBLINGUAL DAILY [facility] Hydroxyzine HCl (Hydroxyzine Hcl 25 Mg Tablet) 25 mg PO Q6H PRN PRN Reason: Anxiety Last Admin: 11/24/22 05:25 Dose: 25 mg Magnesium Hydroxide (Milk Of Magnesia 30 Ml Oral.Susp) 30 ml PO DAILY PRN PRN Reason: Constipation Nicotine Polacrilex (Nicotine Polacrilex 2 Mg Gum) 4 mg BUCCAL Q2H PRN PRN Reason: Nicotine Cravings Omeprazole (Omeprazole 20 Mg Capsule.Dr) 20 mg PO DAILY [facility] Last Admin: 11/25/22 08:21 Dose: Not Given Risperidone (Risperidone 1 Mg Tablet) 1 mg PO BID [facility] Last Admin: 11/25/22 08:22 Dose: Not Given Risperidone (Risperidone 1 Mg Tablet) 1 mg PO BID PRN PRN Reason: psychosis, agitation Trazodone HCl (Trazodone Hcl 50 Mg Tablet) 50 mg PO BEDTIME MRX1 PRN PRN Reason: Insomnia Allergies Allergies Allergy/AdvReac Type Severity Reaction Status Date / Time No Known Allergies Allergy Verified 11/21/22 15:09 [No Known Allergies*] Assessment & Plan Assessment & Plan (1) Delusional disorder: Status: Acute Code(s): F22 - Delusional disorders Assessment and Plan: ? can't pin point any o odd affect, here against his will (2) Substance abuse: Status: Acute Code(s): F19.10 - Other psychoactive substance abuse, uncomplicated Assessment and Plan: on suboxone at [facility] he says 11/24/22 refusing sub films wants pills had consult with addiction medicine who gave him subutex (3) Substance-induced psychotic disorder: Status: Acute Code(s): F19.959 - Other psychoactive substance use, unspecified with psychoactive substance-induced psychotic disorder, unspecified Assessment and Plan: will need further collateral info about family's concern Plan 41 yo male with sx of possible substance induced psychosis. Sent from the court where family was seeking a Section 35. Currently on Suboxone with [facility] [employer]. Section 12B. Plan: Collateral contacts Continue diagnostics Risperdal 1 mg bid and 1 mg bid prn psychotic agitation. Monitor ongoing mental status and symptoms. 11/25/22 Section 12 B to 3/7/23. Family is asking the court to consider Section 35. No sx of psychosis noted in our meeting today. Patient educated on: substance abuse, therapeutic strategies and medical condition Informed Consent: understands Reason for contiued inpatient stay Substantial Risk for: rapid decompensation Time Spent With Patient Time: Total time managing care of this patient today 30minutes.
[2022-11-26] MEDS: Ibuprofen 600 MG TABLET PO (00:59)
[2022-11-26] MEDS: Omeprazole 20 MG CAPSULE.DR PO (08:07)
[2022-11-26] MEDS: Buprenorphine HCL 8 MG TAB.SUBL 16 MG SUBLINGUAL (08:07)
[2022-11-26 08:09] VITALS: BP 136/70; PULSE 83; RESP 17; TEMP 36.4; O2SAT 98
--- NOTE | 2022-11-26 16:41 | P.DS_ITS ---
DS: Providers Provider Date of Service: 11/26/22 Date of admission: 11/21/22 22:30 Date of discharge: 11/26/22 Primary care physician: Itzel Barron NP Admitting clinician: Hetal Hernandez Consults: 11/24/22 13:19 Addiction Medicine Routine Consulting Provider: Addiction Covering Reason for consultation: refusing sub films wants pills on court 12b Has provider been notified: No Attending physician on discharge: Gera Husain Discharging clinician: Hteal Hernandez DS: Diagnosis Discharge Diagnosis (1) Delusional disorder: Status: Resolved (2) Substance abuse: Status: Acute (3) Substance-induced psychotic disorder: Status: Acute DS: Medications Discharge Medications Home Medications: Home Medications Medication Instructions Recorded Confirmed atenolol 25 mg tablet 25 mg PO DAILY 10/12/21 11/21/22 omeprazole 20 mg capsule,delayed 20 mg PO DAILY 10/12/21 11/21/22 release buprenorphine 8 mg-naloxone 2 mg 2 film buccal DAILY 11/21/22 11/21/22 sublingual film (Suboxone) Mental Status Exam Mental Status Exam Patient Appearance: Appropriate Patient Orientation: Person, Place, Time and Situation Level of Consciousness: Alert Patient Behavior: Appropriate, Talkative, Cooperative and Good Eye Contact Mood Description: Calm and Constricted Affect Description: Calm and Constricted Patient Cognition Impaired: No Ability to Follow Directions: Good Speech Pattern: Clear, Appropriate and Spontaneous Speech Memory Description: Intact and Episodic Impaired Hallucinations: None Delusions: Not Present Thought Process: Intact Thought Content: positive for Intact Depressive Symptoms: Thoughts of /Suicide (denies) Judgement: Good Data Data Completed and Pending Completed studies during hospitalization [Text1]: 11/21/22 11/21/22 11/21/22 11:18 14:11 14:11 WBC 7.2 RBC 4.93 Hgb 13.7 L Hct 41.5 L MCV 84.2 MCH 27.8 MCHC 33.0 RDW 13.9 Plt Count 230 MPV 9.3 L Immature Gran % (Auto) 0.1 Neut % (Auto) 70.8 Lymph % (Auto) 23.0 [place] % (Auto) 5.3 Eos % (Auto) 0.4 Baso % (Auto) 0.4 Lymph # (Auto) 1.7 [place] # (Auto) 0.4 Eos # (Auto) 0.0 Baso # (Auto) 0.0 Abs Immat Gran (auto) 0.01 Absolute Neuts (auto) 5.1 Absolute Nucleated RBC 0.000 Nucleated RBC % (auto) 0.0 Sodium 140 Potassium 4.9 Chloride 101 Carbon Dioxide 32 H Anion Gap 12 BUN 17 H Creatinine 0.72 Estim Creat Clear Calc 127.3 Estimated GFR > 60 Random Glucose 103 Calcium 9.3 Total Bilirubin 0.3 Direct Bilirubin < 0.2 AST 19 ALT 23 Alkaline Phosphatase 95 Total Protein 7.6 Albumin 4.4 Urine Color Urine Appearance Urine pH Ur Specific [place] Urine Protein Urine Glucose (UA) Urine Ketones Urine Blood Urine Nitrite Ur Leukocyte Esterase Salicylates < 5.0 L Urine Opiates Screen Urine Fentanyl Screen Acetaminophen < 17 Ur Barbiturates Screen Ur Phencyclidine Scrn Ur Amphetamines Screen U Benzodiazepines Scrn Urine Cocaine Screen U Marijuana (THC) Screen Ethyl Alcohol < 10 COVID-19 ([facility]) Negative COVID-19 Clin Com See Note 11/21/22 11/21/22 16:14 16:14 WBC RBC Hgb Hct MCV MCH MCHC RDW Plt Count MPV Immature Gran % (Auto) Neut % (Auto) Lymph % (Auto) [place] % (Auto) Eos % (Auto) Baso % (Auto) Lymph # (Auto) [place] # (Auto) Eos # (Auto) Baso # (Auto) Abs Immat Gran (auto) Absolute Neuts (auto) Absolute Nucleated RBC Nucleated RBC % (auto) Sodium Potassium Chloride Carbon Dioxide Anion Gap BUN Creatinine Estim Creat Clear Calc Estimated GFR Random Glucose Calcium Total Bilirubin Direct Bilirubin AST ALT Alkaline Phosphatase Total Protein Albumin Urine Color Yellow Urine Appearance Cloudy Urine pH >= 9.0 Ur Specific [place] 1.020 Urine Protein Trace Urine Glucose (UA) Negative Urine Ketones Negative Urine Blood Negative Urine Nitrite Negative Ur Leukocyte Esterase Negative Salicylates Urine Opiates Screen Not Detected Urine Fentanyl Screen Not Detected Acetaminophen Ur Barbiturates Screen Not Detected Ur Phencyclidine Scrn Not Detected Ur Amphetamines Screen Not Detected U Benzodiazepines Scrn Not Detected Urine Cocaine Screen POSITIVE H U Marijuana (THC) Screen POSITIVE H Ethyl Alcohol COVID-19 ([facility]) COVID-19 Clin Com DS: Summary Hospital Course Hospital Course: 42 yo male, admitted on a Section 12B to adult psychiatry from the court with a probable substance induced psychosis. Pt declined all treatment during his admission, kept his Suboxone, Omeprazole, Atenolol dosing consistent from out patient. He cleared over time and was returned to the court upon discharge as family is wanting to pursue Section 35. Time spent discussing smoking cessation with patient: 3 to 10 minutes Status at Discharge Functional status at discharge: independent ambulation Overall status at discharge: patient is back to baseline Time Spent with Patient Time attestation: Total time managing care of this patient today ____ minutes. Time spent: Greater than 30 minutes Discharge Plan Discharge Anticipated Discharge Date/Time: 11/26/22 12:00 Patient Disposition: Home, Self-Care Discharge Diagnosis: Substance Induced Psychotic Disorder Referrals: Itzel Barron NP [Primary Care Provider] - 12/04/22 11:00 am Discharge Medications: Continued buprenorphine-naloxone [Suboxone] 8-2 mg Film 2 film BUCCAL DAILY Rx Instructions: place 1 film on inside of (each) cheek atenolol 25 mg tablet 25 mg PO DAILY omeprazole 20 mg capsule,delayed release(DR/EC) 20 mg PO DAILY Discharge Orders: Discharge Order (Routine); Ordered 11/26/22 Ordered By: Hetal Hernandez Diet: Advance to usual diet Activity on Discharge: As tolerated Stand Alone Forms: Patient Portal Discharge page Care Plan Goals: Mood and Behavioral Stabilization Health Concerns: Mood and Behavioral Stabilization Plan of Treatment: Follow up with Suboxone Treatment Call and or return as needed Assessment: Hospitalized on a Section 12 B Declines medication at this time Declines further treatment at this time Patient Instructions: Stress (DC), Narcotic Safety (DC) Discharge Date/Time: 11/26/22 10:11
== END 2022-11-26 10:11 | disposition home or self-care (01) | DRG 885 ==
LOC: HO.ED 15:55 → HO.PM5 22:38
PROVIDERS: Physician Assistant; Admitting Provider Psychiatry & Neurology Psychiatry; Emergency Provider Student in an Organized Health Care Education/Training Program; PCP Nurse Practitioner; Visit Provider Clinical Nurse Specialist Psychiatric/Mental Health, Adult
DX: F22 Delusional disorders (principal); F11.20 Opioid dependence, uncomplicated; F19.959 Other psychoactive substance use, unspecified with psychoactive substance-induced psychotic disorder, unspecified; Z20.822 Contact with and (suspected) exposure to COVID-19; Z79.899 Other long term (current) drug therapy
CPT/HCPCS: 36415; 80048; 80076; 80143; 80179; 80307; 81003; 82077; 85025; 87635; 93005; 99285; J0571